=== PATIENT | female | born 1955 | race Hispanic/Latino ===

== ENCOUNTER 2016-10-21 15:51 | Emergency (ER) | payer MEDICAID, OTHER ==
[2016-10-21 16:01] VITALS: BP 125/79; PULSE 80; RESP 14; TEMP 98.2; O2SAT 100
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
[2016-10-21] MEDS ORDERED: Bacitracin 500 Units/gm Oint Foilpak UD TOP ONE (17:28)
--- NOTE | 2016-10-21 17:31 | RAD ---
PROCEDURE: Radiographs of the left elbow. HISTORY: trauma COMPARISON: No prior. FINDINGS: BONES: Normal. No fracture. JOINTS: Normal. No osteoarthritis. SOFT TISSUES: Normal. JOINT EFFUSION: None. OTHER FINDINGS: None IMPRESSION: Unremarkable radiographs of the left elbow. Concordant results with the preliminary interpretation rendered by the emergency department physician procedure.
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
== END 2016-10-21 18:00 | disposition home or self-care (01) ==
LOC: C.ER 15:51
DX: S60.221A Contusion of right hand, initial encounter (principal); S50.312A Abrasion of left elbow, initial encounter; S60.511A Abrasion of right hand, initial encounter; V19.88XA Pedal cyclist (driver) (passenger) injured in other specified transport accidents, initial encounter; Y93.55 Activity, bike riding; Y92.410 Unspecified street and highway as the place of occurrence of the external cause

== ENCOUNTER 2017-06-25 18:57 | Emergency (ER) | payer MEDICAID ==
[2017-06-25 19:33] VITALS: BP 98/66; PULSE 86; RESP 18; TEMP 99.1; O2SAT 97
--- NOTE | 2017-06-25 19:53 | C.PDOC ---
Time Seen by Provider: 06/25/17 19:35 Chief Complaint (Nursing): Cough, Cold, Congestion History Per: Patient Onset/Duration Of Symptoms: Days (3) Current Symptoms Are (Timing): Still Present Associated Symptoms: Fever (subjective), Cough, Nasal Congestion Severity: Moderate Recent travel outside of the [place]: No Additional History Per: Prior Records Past Medical History Reviewed: Historical Data, Nursing Documentation, Vital Signs Vital Signs: Last Vital Signs Temp 99.1 F 06/25/17 19:29 Pulse 86 06/25/17 19:29 Resp 18 06/25/17 19:29 BP 98/66 L 06/25/17 19:29 Pulse Ox 97 06/25/17 19:29 - Medical History PMH: No Chronic Diseases - [facility] Procedures TETANUS TOXOID ADMINIST (01/01/15) Family History: States: Unknown Family Hx - Social History Hx Tobacco Use: No Hx Alcohol Use: Yes Hx Substance Use: No - Immunization History Hx Tetanus Toxoid Vaccination: No Hx Influenza Vaccination: No Hx Pneumococcal Vaccination: No Review Of Systems Except As Marked, All Systems Reviewed And Found Negative. Constitutional: Positive for: Malaise ENT: Positive for: Nose Congestion. Negative for: Ear Pain Cardiovascular: Negative for: Chest Pain Respiratory: Positive for: Cough. Negative for: Shortness of Breath, Hemoptysis Gastrointestinal: Negative for: Vomiting, Abdominal Pain, Diarrhea Genitourinary: Negative for: Dysuria Musculoskeletal: Negative for: Neck Pain, Back Pain Skin: Negative for: Rash Neurological: Negative for: Weakness, Numbness, Seizures, Altered Mental Status Physical Exam - Physical Exam Appears: Non-toxic, No Acute Distress Skin: Normal Color, Warm, Dry, No Rash Head: Atraumatic, Normacephalic Eye(s): bilateral: Normal Inspection, PERRL, EOMI Oral Mucosa: Moist, No Drooling, No Trismus Neck: Normal ROM, Supple Lymphatic: No Adenopathy Cardiovascular: Rhythm Regular Respiratory: Normal Breath Sounds, No Accessory Muscle Use Gastrointestinal/Abdominal: Soft, No Tenderness Back: No CVA Tenderness Extremity: Normal ROM, No Pedal Edema, No Calf Tenderness Neurological/Psych: Oriented x3, Normal Speech, Normal Motor, Normal Sensation ED Course And Treatment O2 Sat by Pulse Oximetry: 97 Pulse Ox Interpretation: Normal Disposition Counseled Patient/Family Regarding: Diagnosis, Need For Followup, Rx Given - Disposition Disposition: HOME/ ROUTINE Disposition Time: 19:52 Condition: STABLE Additional Instructions: Drink plenty of fluids. Follow up with your doctor. Return to the ER if you develop high fever, lethargy, shortness of breath, worsening of symptoms or if you have any other concerns. Prescriptions: Benzonatate 200 mg PO TID PRN #15 capsule PRN Reason: Cough Naproxen 375 mg PO BID PRN #20 tablet PRN Reason: Fever >100.4 F Oxymetazoline 0.05% [Oxymetazoline HCl 30 Ml] 2 sprays NS BID #1 bottle Instructions: Cold Symptoms (ED) Forms: [facility] [employer] [facility] ([place]) - Clinical Impression Clinical Impression: Upper respiratory infection
== END 2017-06-25 20:11 | disposition home or self-care (01) ==
LOC: C.ER 18:57
DX: J06.9 Acute upper respiratory infection, unspecified (principal)